=== PATIENT | female | born 1990 | race Hispanic/Latino ===

== ENCOUNTER 2019-08-04 12:22 | Observation (INO) | payer MEDICAID ==
[~2019-08-04] VITALS: Ht 152.4 cm; Wt 83.9 kg
[2019-08-04] MEDS ORDERED: LACTATED RINGERS 1000ML 1,000 ML IV PRN (13:38)
[2019-08-04] MEDS ORDERED: OXYTOCIN-LR 20 UNITS/1000 ML 1,000 ML IV SCH (13:45)
[2019-08-04 13:50] LABS: BASOPHILS % (AUTO) 0.2 % (0.0-5.0); EOSINOPHILS % (AUTO) 1.1 % (0.0-8.0); HEMATOCRIT 36.7 % (36-48); LYMPHOCYTES % (AUTO) 15.8 % (21.0-51.0); MEAN CORPUSCULAR HEMOGLOBIN 29.1 pg (27.0-33.0); MEAN CORPUSCULAR HGB CONC 33.2 g/dL (32.0-36.0); MEAN CORPUSCULAR VOLUME 87.6 fL (79-99); NEUTROPHILS % (AUTO) 77.3 % (40.0-77.0); PLATELET COUNT (AUTO) 228 K/uL (130-400); RED BLOOD CELL COUNT(AUTO) 4.19 MIL/uL (4.00-5.50); RED CELL DISTRIBUTION WIDTH 13.9 % (11.0-15.5); WHITE BLOOD COUNT (AUTO) 12.1 K/uL (4.8-10.8)
[2019-08-04 14:00] LABS: INR 0.83 (0.85-1.15); PARTIAL THROMBOPLASTIN TIME 25.7 SEC (26.3-35.5)
[2019-08-04 14:02] LABS: ALBUMIN 2.6 g/dL (3.5-5.0); APPEARANCE,URINE Clear (CLEAR); BILIRUBIN,TOTAL 0.1 mg/dL (0.2-1.0); BILIRUBIN,URINE Negative (NEGATIVE); COLOR,URINE Yellow (YELLOW); CREATININE 0.7 mg/dL (0.5-1.5); GLUCOSE, URINE (UA) Negative (NEGATIVE); KETONES,URINE Negative (NEGATIVE); LEUKOCYTE ESTERASE ,URINE Negative (NEGATIVE); NITRATE,URINE Negative (NEGATIVE); OCCULT BLOOD,URINE Negative (NEGATIVE); PH,URINE 6.5 (5.0-8.0); POTASSIUM 3.8 mmol/L (3.5-5.1); PROTEIN,URINE POS 2+ mg/dL (NEGATIVE); TOTAL PROTEIN, SERUM 6.9 g/dL (6.0-8.3); URIC ACID 5.5 mg/dL (2.6-7.2)
[2019-08-04 14:22] LABS: BACTERIA,URINE Rare /HPF (None Seen); MUCUS,URINE Few LPF (None Seen); SQUAMOUS EPITHELIAL CELL,UR Few /HPF (0-2)
[2019-08-05 08:10] LABS: HEPATITIS Bs ANTIGEN SCREEN P Negative (Negative)
== END 2019-08-04 15:55 | disposition home or self-care (01) ==
LOC: LDH 12:22
PROVIDERS: ADMIT Obstetrics & Gynecology; ATTEND Obstetrics & Gynecology
DX: O26.893 Other specified pregnancy related conditions, third trimester (principal); R03.0 Elevated blood-pressure reading, without diagnosis of hypertension; Z3A.35 35 weeks gestation of pregnancy
CPT/HCPCS: 36415; 76805; 76819; 80053; 81001; 84550; 85025; 85027; 85384; 85610; 85730; 86592; 86850; 86900; 86901; 87340; G0378 ×3

== ENCOUNTER 2019-08-11 10:28 | Inpatient (IN) | payer MEDICAID ==
[~2019-08-11] VITALS: Ht 152.4 cm; Wt 83.5 kg
[2019-08-11] MEDS ORDERED: LACTATED RINGERS 1000ML 1,000 ML IV PRN (11:16)
[2019-08-11 11:41] LABS: HEMATOCRIT 38.5 % (36-48); MEAN CORPUSCULAR HGB CONC 33.2 g/dL (32.0-36.0); MEAN CORPUSCULAR VOLUME 87.1 fL (79-99); RED BLOOD CELL COUNT(AUTO) 4.42 MIL/uL (4.00-5.50); RED CELL DISTRIBUTION WIDTH 14.1 % (11.0-15.5); WHITE BLOOD COUNT (AUTO) 10.2 K/uL (4.8-10.8)
[2019-08-11 11:51] LABS: CREATININE 0.6 mg/dL (0.5-1.5)
[2019-08-11 11:53] LABS: INR 0.86 (0.85-1.15); PARTIAL THROMBOPLASTIN TIME 24.7 SEC (26.3-35.5); PROTHROMBIN TIME 9.3 SEC (9.6-11.6)
[2019-08-11 11:55] LABS: ALBUMIN 2.4 g/dL (3.5-5.0); BILIRUBIN,TOTAL 0.2 mg/dL (0.2-1.0); TOTAL PROTEIN, SERUM 6.6 g/dL (6.0-8.3); URIC ACID 5.4 mg/dL (2.6-7.2)
[2019-08-11 12:15] LABS: APPEARANCE,URINE Cloudy (CLEAR); BILIRUBIN,URINE Negative (NEGATIVE); COLOR,URINE Dark Yellow (YELLOW); GLUCOSE, URINE (UA) Negative (NEGATIVE); KETONES,URINE Negative (NEGATIVE); LEUKOCYTE ESTERASE ,URINE Trace (NEGATIVE); NITRATE,URINE Negative (NEGATIVE); OCCULT BLOOD,URINE Negative (NEGATIVE); PROTEIN,URINE 300 mg/dL (NEGATIVE)
[2019-08-11 12:33] LABS: BACTERIA,URINE Rare /HPF (None Seen); RBC,URINE 0-1 /HPF (0-1); SQUAMOUS EPITHELIAL CELL,UR Few /HPF (0-2); WBC,URINE 0-1 /HPF (0-1)
[2019-08-11] MEDS ORDERED: MEPERIDINE-PF 50 MG/ML SYG IVP PRN (12:45)
[2019-08-11] MEDS ORDERED: ROPIVACAINE 0.2% 100ML VIAL 100 ML EP SCH (12:45)
[2019-08-11] MEDS ORDERED: PROMETHAZINE HCL 25 MG/ML 1ML AMPULE IM PRN (12:45)
[2019-08-11] MEDS ORDERED: NALOXONE HCL 0.4 MG/1 ML ML IV PRN (12:45)
[2019-08-11] MEDS ORDERED: EPHEDRINE SULFATE 50 MG/ML AMPULE IVP PRN (12:45)
[2019-08-11] MEDS ORDERED: LACTATED RINGERS 500 ML 500 ML IV PRN (12:45)
[2019-08-11] MEDS ORDERED: MISOPROSTOL 100 MCG TABLET VG SCH (16:00)
[2019-08-11] MEDS ORDERED: MISOPROSTOL 25 MCG TABLET ONE (16:09)
[2019-08-11 19:34] VITALS: BP 143/86
[2019-08-11] MEDS ORDERED: MISOPROSTOL 25 MCG TABLET VG SCH (19:45)
[2019-08-11] MEDS ORDERED: MAGNESIUM SULFATE 1,000 ML IV PRN (23:27)
[2019-08-11] MEDS ORDERED: MAGNESIUM 4GM PREMIX 100ML 100 ML IV ONE (23:29)
[2019-08-11] MEDS ORDERED: MAGNESIUM SULFATE 1,000 ML IV ONE (23:29)
[2019-08-11] MEDS ORDERED: CALCIUM GLUCONATE 1 GM/10 ML VIAL IV PRN (23:30)
[2019-08-11] MEDS ORDERED: MAGNESIUM 4GM PREMIX 100ML 100 ML IV PRN (23:30)
[2019-08-12] VITALS (9 sets, daily range): BP systolic 139–159; BP diastolic 87–99
[2019-08-12] MEDS ORDERED: OXYTOCIN 10 USP UNITS/ML 20 UNIT in LACTATED RINGERS 1000ML 1,000 ML IV SCH (04:00)
[2019-08-12] MEDS ORDERED: FENTANYL CITRATE PF 50 MCG/1 ML 2ML VIAL ONE (05:31)
[2019-08-12] MEDS ORDERED: OXYTOCIN-LR 20 UNITS/1000 ML 1,000 ML IV ONE (07:50)
[2019-08-12 09:10] LABS: HEPATITIS Bs ANTIGEN SCREEN P Negative (Negative)
[2019-08-12] MEDS ORDERED: MAGNESIUM SULFATE 1,000 ML IV PRN (10:09)
[2019-08-12] MEDS ORDERED: MAGNESIUM 4GM PREMIX 100ML 100 ML IV PRN (10:15)
[2019-08-12] MEDS ORDERED: OXYTOCIN-LR 20 UNITS/1000 ML 1,000 ML IV SCH (10:15)
[2019-08-12] MEDS ORDERED: CALCIUM GLUCONATE 1 GM/10 ML VIAL IV PRN (10:15)
[2019-08-12] MEDS ORDERED: OXYTOCIN 10 USP UNITS/ML IV PRN (10:15)
[2019-08-12] MEDS ORDERED: BENZOCAINE/LANOLIN/ALOE VERA 60 ML AEROSOL TP PRN (12:15)
[2019-08-12] MEDS ORDERED: ACETAMINOPHEN 325 MG TAB PO PRN (12:15)
[2019-08-12] MEDS ORDERED: WITCH HAZEL 1 PAD TP PRN (12:15)
[2019-08-12] MEDS ORDERED: ACETAMINOPHEN-CODEINE 300/30MG TAB PO PRN (12:15)
[2019-08-12] MEDS ORDERED: LANOLIN 30GM OINTMENT TP PRN (12:15)
[2019-08-12] MEDS: IBUPROFEN 600 MG TABLET PO PRN (12:33)
[2019-08-12 13:25] LABS: RAPID PLASMA REAGIN NONREACTIVE (NONREACTIVE)
[2019-08-12] MEDS: HYDRALAZINE HCL 20 MG/ML VIAL IV SCH ×2 (13:32→13:49)
[2019-08-12] MEDS: LABETALOL HCL 100 MG TABLET PO SCH (17:10)
--- NOTE | 2019-08-12 19:10 | NUR ---
Report received from David Raman RN. Patient on Magnesium Sulfate at 2 gms/hour & Pitocin number 2 bag regulated at 75 ml/hour. Magnesium Sulfate almost consumed new bag hung rate at 50 ml/hour. Plan of care discussed with patient verbalizes understanding.
--- NOTE | 2019-08-12 20:10 | NUR ---
Patient; Patient transferred to room 111 via bed, side rails padded, call light given. Inform to call for any assistance if needed.
[2019-08-12] MEDS ORDERED: AMOX500C2 PO (20:31)
[2019-08-12] MEDS ORDERED: PREN-66 PO (20:31)
[2019-08-12] MEDS: DOCUSATE SODIUM 100 MG CAP PO SCH (21:37)
[2019-08-12] MEDS: LACTATED RINGERS 1000ML 1,000 ML IV SCH ×2 (22:08→23:29)
[2019-08-13] VITALS (26 sets, daily range): BP systolic 123–169; BP diastolic 73–99
[2019-08-13] MEDS: IBUPROFEN 600 MG TABLET PO PRN ×2 (01:11→21:00)
[2019-08-13 06:30] LABS: HEMATOCRIT 35.4 % (36-48); MEAN CORPUSCULAR HEMOGLOBIN 29.9 pg (27.0-33.0); MEAN CORPUSCULAR HGB CONC 33.6 g/dL (32.0-36.0); MEAN CORPUSCULAR VOLUME 88.9 fL (79-99); RED BLOOD CELL COUNT(AUTO) 3.98 MIL/uL (4.00-5.50); RED CELL DISTRIBUTION WIDTH 14.2 % (11.0-15.5); WHITE BLOOD COUNT (AUTO) 11.3 K/uL (4.8-10.8)
[2019-08-13] MEDS: DOCUSATE SODIUM 100 MG CAP PO SCH ×2 (09:35→20:57)
--- NOTE | 2019-08-13 09:35 | NUR ---
magnesium sulfate discontinued as per order, alcala catheter removed, tip intact, pericare done, informed to call for assistance to the bathroom, pt voiced understanding. Addendum: 08/13/19 at 1032 by CARLITOS DEAN RN Amended: Links added.
[2019-08-13] MEDS: LABETALOL HCL 100 MG TABLET PO SCH ×2 (09:36→20:58)
[2019-08-13] MEDS ORDERED: ACETAMINOPHEN-CODEINE 300/30MG TAB PO PRN (10:15)
[2019-08-13] MEDS ORDERED: BENZOCAINE/LANOLIN/ALOE VERA 60 ML AEROSOL TP PRN (10:15)
[2019-08-13] MEDS ORDERED: DIPH,PERTUSS(ACELL),TET VAC/PF 0.5 ML VIAL IM PRN (10:15)
[2019-08-13] MEDS ORDERED: LANOLIN 30GM OINTMENT TP PRN (10:15)
[2019-08-13] MEDS ORDERED: ACETAMINOPHEN 325 MG TAB PO PRN (10:15)
[2019-08-13] MEDS ORDERED: WITCH HAZEL 1 PAD TP PRN (10:15)
[2019-08-14] VITALS (7 sets, daily range): BP systolic 138–155; BP diastolic 78–98
[2019-08-14] MEDS: LACTATED RINGERS 1000ML 1,000 ML IV SCH (02:09)
[2019-08-14] MEDS: LABETALOL HCL 100 MG TABLET PO SCH ×3 (08:56→21:27)
[2019-08-14] MEDS: DOCUSATE SODIUM 100 MG CAP PO SCH ×2 (08:56→21:26)
[2019-08-14] MEDS: IBUPROFEN 600 MG TABLET PO PRN ×2 (08:58→17:47)
--- NOTE | 2019-08-14 10:30 | NUR ---
DR. RAMSEY ROUNDED AND INCREASED DOSAGE OF LABETALOL TO 200MGS BID. ONCE TIME DOSE OF 100MGS TO BE GIVEN NOW AND THEN INCREASE DOSAGE TO 200MGS BID. WILL EVALUATE BP UNTIL A.M. FOR POSSIBLE DISCHARGE.
[2019-08-14] MEDS ORDERED: LABETALOL HCL 100 MG TABLET PO SCH (11:45)
--- NOTE | 2019-08-14 17:40 | NUR ---
C/O MILD PAIN AND WAS MEDICATED WITH MOTRIN. PATIENT STABLE AND ENCOURAGED TO AMBULATE.
--- NOTE | 2019-08-14 19:20 | NUR ---
BEDSIDE REPORT GIVEN TO Danyel MADSEN LVN AND PATIENT CARE TRANSFERED AT THIS TIME.
[2019-08-15 00:05] VITALS: BP 130/85
[2019-08-15 03:51] VITALS: BP 133/76
[2019-08-15 07:20] VITALS: BP 144/92
[2019-08-15] MEDS: DOCUSATE SODIUM 100 MG CAP PO SCH (08:31)
[2019-08-15] MEDS: LABETALOL HCL 100 MG TABLET PO SCH (08:31)
[2019-08-15] MEDS: IBUPROFEN 600 MG TABLET PO PRN (08:33)
--- NOTE | 2019-08-15 08:50 | NUR ---
DR. VAELNTINE ROUNDED AND DISCHARGED PATIENT TO HOME ON ALDOMENT. PATIENT INSTRUCTED ON NEED TO MAKE SURE SHE TAKES MEDICATIONS FOR BLOOD PRESSURE. VERBALIZED UNDERSTANDING.
[2019-08-15 10:56] VITALS: BP 141/89
--- NOTE | 2019-08-15 12:00 | NUR ---
DISCHARGE INSTRUCTIONS GIVEN AND PATIENT HAD JUST RETURNED FROM NURSERY FROM VISITING WITH BABY. PATIENT WAS GIVEN SCRIPT AND INSTRUCTED ON DOSAGE AND FREQUENCY OF ALL MEDICATIONS AND VERBALIZED UNDERSTANDING INSTRUCTIONS GIVEN.
--- NOTE | 2019-08-15 12:30 | NUR ---
PATIENT WAS TAKEN VIA W/C TO [facility]ILY [facility] AND WAS NOT DISCHARGED. PATIENT IS STABLE AND DENIES PAIN ON DISCHARGE.
== END 2019-08-15 12:30 | disposition home or self-care (01) | DRG 560 ==
LOC: LDH 10:28 → WSH 08-12 20:13 → PREOBSVTOIN 09-14 10:28
PROVIDERS: ADMIT Obstetrics & Gynecology; ATTEND Obstetrics & Gynecology
PROC: 3E0P7VZ Introduction of Hormone into Female Reproductive, Via Natural or Artificial Opening (ICD-10-PCS; principal; 2019-08-11)
PROC: 10E0XZZ Delivery of Products of Conception, External Approach (ICD-10-PCS; 2019-08-11)
PROC: 3E033VJ Introduction of Other Hormone into Peripheral Vein, Percutaneous Approach (ICD-10-PCS; 2019-08-11)
PROC: 3E0234Z Introduction of Serum, Toxoid and Vaccine into Muscle, Percutaneous Approach (ICD-10-PCS; 2019-08-11)
PROC: 3E0R3BZ Introduction of Anesthetic Agent into Spinal Canal, Percutaneous Approach (ICD-10-PCS; 2019-08-11)
PROC: 00HU03Z Insertion of Infusion Device into Spinal Canal, Open Approach (ICD-10-PCS; 2019-08-11)
DX: O14.04 Mild to moderate pre-eclampsia, complicating childbirth (principal); Z37.0 Single live birth; O69.81X0 Labor and delivery complicated by cord around neck, without compression, not applicable or unspecified; Z3A.36 36 weeks gestation of pregnancy; Z23 Encounter for immunization
CPT/HCPCS: 36415; 76805; 76819; 80053; 81001; 82948; 84550; 85027; 85384; 85610; 85730; 86592; 86701; 86850; 86900; 86901; 87340; 87390; 90715; A4314; A4351; G0378; J0360; J2590; J2795; J3010; J3475; J7120

== ENCOUNTER 2023-08-02 07:57 | Day surgery (SDC) | payer MEDICAID ==
[2023-07-31 11:40] LABS: BASOPHILS # (AUTO) 0.04 K/uL (0.00-0.20); BASOPHILS % (AUTO) 0.4 % (0.0-5.0); EOSINOPHILS # (AUTO) 0.36 K/uL (0.00-0.70); EOSINOPHILS % (AUTO) 3.9 % (0.0-8.0); HEMATOCRIT 43.1 % (36-48); IMMATURE GRANULOCYTE ABSOLUTE 0.03 K/uL (0-1); LYMPHOCYTES % (AUTO) 21.9 % (21.0-51.0); MEAN CORPUSCULAR VOLUME 85.5 fL (79-99); MONOCYTES # (AUTO) 0.6 K/uL (0.1-1.0); NEUTROPHILS # (AUTO) 6.3 K/uL (1.8-7.7); NEUTROPHILS % (AUTO) 67.5 % (40.0-77.0); PLATELET COUNT (AUTO) 259 K/uL (130-400); RED BLOOD CELL COUNT(AUTO) 5.04 MIL/uL (4.00-5.50); RED CELL DISTRIBUTION WIDTH 13.2 % (11.0-15.5); WHITE BLOOD COUNT (AUTO) 9.3 K/uL (4.8-10.8)
[2023-07-31 12:12] VITALS: BP 139/96; PULSE 87; RESP 18
[~2023-08-02] VITALS: Ht 152.4 cm; Wt 87.8 kg
[2023-08-02] VITALS (17 sets, daily range): BP systolic 125–146; BP diastolic 71–88; PULSE 75–97; RESP 15–18
[~2023-08-02 07:57] MED LIST: CEFAZOLIN SODIUM 2 GM VIAL ONE; LACTATED RINGERS 1000ML 1,000 ML IV ONE
[2023-08-02] MEDS ORDERED: BUPIVACAINE/PF 0.25% 30ML VIAL IJ ONE (08:22)
[2023-08-02] MEDS: BUPIVACAINE/PF 0.25% 30ML VIAL IJ ONE ×2 (09:21→10:52)
[2023-08-02] MEDS ORDERED: LIDOCAINE PF 100MG/5ML (2%) SYRINGE 5ML ONE (10:02)
[2023-08-02] MEDS ORDERED: FENTANYL CITRATE PF 50 MCG/1 ML 2ML VIAL ONE ×2 (10:03→10:52)
[2023-08-02] MEDS ORDERED: PROPOFOL 10 MG/ML 20ML VIAL IV ONE (10:03)
[2023-08-02] MEDS ORDERED: MIDAZOLAM HCL 1 MG/ML 2ML VIAL ONE (10:03)
[2023-08-02] MEDS ORDERED: ROCURONIUM BROMIDE 10MG/1ML 5ML VL ONE (10:03)
[2023-08-02] MEDS ORDERED: SUCCINYLCHOLINE CHLORIDE 20 MG/ML 10 ML VIAL ONE (10:03)
[2023-08-02] MEDS ORDERED: ONDANSETRON 4MG INJ ONE (10:06)
[2023-08-02] MEDS ORDERED: GLYCOPYRROLATE 0.2 MG/ML 5 ML VIAL ONE (11:12)
[2023-08-02] MEDS ORDERED: NEOSTIGMINE METHYLSULFATE 1MG/ML IV ONE (11:12)
[2023-08-02] MEDS: MEPERIDINE-PF 25 MG/ML SYG ONE (11:33)
== END 2023-08-02 13:12 | disposition home or self-care (01) ==
LOC: DAH 07:57
PROVIDERS: ATTEND Obstetrics & Gynecology
DX: Z30.2 Encounter for sterilization (principal); E66.9 Obesity, unspecified; J45.909 Unspecified asthma, uncomplicated; Z79.899 Other long term (current) drug therapy; Z98.890 Other specified postprocedural states
CPT/HCPCS: 84703; 85025; 86850; 86900; 86901; 36415; 58670; A6260; A4663; A4351; A4606; J7120; J3010 ×2; J0330; J0665 ×2; J3490 ×4; J2250; J2405; J2710; J2175; J0690 ×2; C1769 ×3; A4649; A4215 ×2; A4930; A4223; A4213; A4222; A4221; A4600; A4510; J2001; J2704; G0168